=== PATIENT | male | born 2000 | race Hispanic/Latino ===

== ENCOUNTER 2024-02-21 21:04 | Emergency (ER) | payer OTHER ==
[~2024-02-21] VITALS: Ht 170.2 cm; Wt 82.0 kg
[2024-02-22 01:05] VITALS: BP 111/74; TEMP 98.7; O2SAT 99
== END 2024-02-22 01:06 | disposition home or self-care (01) ==
LOC: M ED 21:04
DX: J11.1 Influenza due to unidentified influenza virus with other respiratory manifestations (principal); B34.8 Other viral infections of unspecified site; Z20.9 Contact with and (suspected) exposure to unspecified communicable disease